=== PATIENT | male | born 1955 | race Caucasian/White ===

== ENCOUNTER 2018-07-28 23:59 | Inpatient (IN) | payer BC ==
[~2018-07-28] VITALS: Ht 175.2 cm; Wt 121.6 kg
--- NOTE | ~2018-07-28 | EKG ---
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
--- NOTE | ~2018-07-28 | EKG ---
[place], [place] ELECTROCARDIOGRAM REPORT NAME: JENNYFER MANCILLA UNIT #: [id number] ROOM: 507 DOCTOR: YESSY DRAFT REPORT BIRTHDATE: [birth year] 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
[~2018-07-28 23:59] MED LIST: ARTHROTEC 50 MG75 MG PO; CYMBALTA60 MG PO; LANOXIN0.25 MG PO; LOPRESSOR25 MG PO; SYNTHROID0.112 MG PO; XARE20MG PO; ZANTAC150 MG PO
[2018-07-29 00:14] VITALS: BP 114/68
[2018-07-29 00:41] LABS: BASO # 0.1 10*3/uL (0.0-0.1); BASO % 1.1 % (0.0-1.0); EOS # 0.3 10*3/uL (0.0-0.4); EOS % 5.5 % (1.0-4.0); HEMOGLOBIN 12.7 g/dl (14.0-18.0); LYMPH # 1.4 10*3/uL (1.3-4.4); LYMPH % 26.5 % (27.0-41.0); MEAN CELL VOLUME 96.7 fl (80.0-94.0); MEAN CORPUSCULAR HGB 32.3 pg (27.0-31.0); MEAN CORPUSCULAR HGB CONC 33.4 g/dl (33.0-37.0); MEAN PLATELET VOLUME 9.6 fl (9.6-12.3); MONO # 0.5 10*3/uL (0.1-1.0); MONO % 8.5 % (3.0-9.0); NEUT # 3.1 10*3/uL (2.3-7.9); PLATELET COUNT AUTOMATED 203 10*3/uL (130-400); RED BLOOD COUNT 3.93 10*6/uL (4.50-5.90); RED CELL DISTRI WIDTH 14.9 % (0-14.5); WHITE BLOOD COUNT 5.3 10*3/uL (4.8-10.8)
[2018-07-29 00:45] VITALS: BP 100/68
--- NOTE | 2018-07-29 00:45 | NUR ---
Time: 44 A 63 year old M admitted to 5E under services of SONJA HAWKINS DO. Pt. arrived via wheel chair from ER. Chief complaint: BILATERAL KNEE AND LEFT ANKLE PAIN, CHRONIC IN NATURE. PATIENT AMBULATORY WITH CANE FOR 5+ YRS. STATES UNABLE TO TAKE STEPS AT WORK THIS PAST EVENING. PATIENT AMBULATED FROM WC TO BED. KARLENE NOLEN
[2018-07-29] MEDS ORDERED: ARIPIPRAZOLE10 MG PO (00:56)
[2018-07-29] MEDS ORDERED: FLECAINIDE ACE100 M1 PO (00:56)
[2018-07-29 00:58] LABS: ALBUMIN 3.3 gm/dl (3.1-4.5); ALKALINE PHOSPHATASE 56 U/L (45-117); BUN 20 mg/dl (7-24); CHLORIDE 104 mmol/L (98-107); CREATININE 1.07 mg/dL (0.70-1.30); POTASSIUM 4.1 mmol/L (3.5-5.1); SGOT/AST 65 IU/L (3-35); SGPT/ALT 47 U/L (12-78); SODIUM 138 mmol/L (136-145); TOTAL PROTEIN 7.3 gm/dL (6.4-8.2); TROPONIN I < 0.015 ng/ml (<0.045)
--- NOTE | 2018-07-29 01:03 | NUR ---
MED REC UP TO DATE VIA MED CLAIMS HX & PATIENT RECALL.
[2018-07-29 01:08] LABS: CPK 1910 U/L (39-308)
--- NOTE | 2018-07-29 01:10 | NUR ---
DR RIVERA SEE TO ASSESS PATIENT AND DISCUSS PLAN OF CARE
--- NOTE | 2018-07-29 02:15 | NUR ---
DR AC ON FLOOR TO ASSESS PATIENT AND DISCUSS PLAN OF CARE
--- NOTE | 2018-07-29 03:40 | NUR ---
ATTEMPTING TO HANG IVF SINCE ORDERED AT 0225. MEDS NOT PROFILED OR AVAIL. [facility] CONTACTED AND REQUESTED IVF TO BE PROFILED
--- NOTE | 2018-07-29 04:30 | NUR ---
SLEEPING. BED ALARM MAINTAINED FOR SAFETY
[2018-07-29 05:39] LABS: BASO # 0.1 10*3/uL (0.0-0.1); EOS # 0.4 10*3/uL (0.0-0.4); EOS % 7.5 % (1.0-4.0); HEMOGLOBIN 13.1 g/dl (14.0-18.0); LYMPH # 1.4 10*3/uL (1.3-4.4); LYMPH % 28.5 % (27.0-41.0); MEAN CELL VOLUME 95.4 fl (80.0-94.0); MEAN CORPUSCULAR HGB CONC 33.6 g/dl (33.0-37.0); MEAN PLATELET VOLUME 9.7 fl (9.6-12.3); MONO # 0.5 10*3/uL (0.1-1.0); MONO % 9.1 % (3.0-9.0); NEUT # 2.7 10*3/uL (2.3-7.9); NEUT % 53.5 % (47.0-73.0); PLATELET COUNT AUTOMATED 205 10*3/uL (130-400); RED BLOOD COUNT 4.09 10*6/uL (4.50-5.90); RED CELL DISTRI WIDTH 14.8 % (0-14.5)
[2018-07-29 05:55] LABS: ALBUMIN 3.2 gm/dl (3.1-4.5); BUN 18 mg/dl (7-24); CHLORIDE 105 mmol/L (98-107); CREATININE 0.96 mg/dL (0.70-1.30); SGOT/AST 60 IU/L (3-35); SGPT/ALT 46 U/L (12-78); SODIUM 138 mmol/L (136-145); TOTAL PROTEIN 6.9 gm/dL (6.4-8.2)
[2018-07-29 05:56] LABS: ALKALINE PHOSPHATASE 54 U/L (45-117)
--- NOTE | 2018-07-29 06:00 | NUR ---
SLEPT SINCE ARRIVING ON FLOOR. IV FLUIDS MAINTAINED. BED ALARM IN PLACE
[2018-07-29 06:25] LABS: CPK 1828 U/L (39-308)
[2018-07-29 08:31] LABS: BILIRUBIN NEGATIVE (NEGATIVE); BLOOD NEGATIVE (NEGATIVE); CLARITY CLEAR (CLEAR); COLOR YELLOW (YELLOW); GLUCOSE NEGATIVE (NEGATIVE); KETONE NEGATIVE (NEGATIVE); LEUKO ESTERASE NEGATIVE (NEGATIVE); NITRITE NEGATIVE (NEGATIVE); PH 5.5 (5.0-9.0); SPECIFIC GRAVITY 1.025 (1.005-1.030)
[2018-07-29 08:55] VITALS: BP 90/63
[2018-07-29 08:57] LABS: WBC 0-2 wbc/hpf (0-5)
--- NOTE | 2018-07-29 09:31 | NUR ---
NOTIFIED REGARDING BP 88/58. PT ASYMPTOMATIC. WILL INCREASE IVF. CALL LIGHT WITHIN REACH.
[2018-07-29 09:35] VITALS: BP 88/58
--- NOTE | 2018-07-29 09:49 | NUR ---
0916 REPORTED OF ABNORMAL BP OF 90/63 TO NIKUNJ LAMA. PATIENTS DENIES soB, DIZZINESS, CHEST PAIN. PATIENT IN SEMI FOWLERS POSITION, AND ALL SAFETYS IN PLACE. PATIENT DELCINED BATH. ROGELIO ANTONIO
--- NOTE | 2018-07-29 10:26 | NUR ---
PATIENT RETURNED TO ROOM FROM SCHEDULED U/S.
--- NOTE | 2018-07-29 10:35 | NUR ---
IN TO SEE PATIENT AT THIS TIME.
[2018-07-29] MEDS ORDERED: Synthroid,Lev150 MCG PO (10:41)
--- NOTE | 2018-07-29 11:06 | NUR ---
Discharge instructions reviewed with patient/family. Patient receptive and verbalizes understanding. Follow-up care arranged. Written instructions given to patient/family. KELBY WILLSON.
--- NOTE | 2018-07-29 11:44 | NUR ---
PHYSICAL THERAPY Nursing screen received. PAtient discharged. Thank you. Raven Massey,PT
== END 2018-07-29 11:07 | disposition home or self-care (01) | DRG 556 ==
LOC: ED 23:59 → EDHOLD 07-29 00:26 → 5E 07-29 00:26
PROVIDERS: Family Medicine; Student in an Organized Health Care Education/Training Program; ADMIT Internal Medicine
DX: R26.2 Difficulty in walking, not elsewhere classified (principal); F12.10 Cannabis abuse, uncomplicated; G89.29 Other chronic pain; M54.9 Dorsalgia, unspecified; I48.91 Unspecified atrial fibrillation; F32.9 Major depressive disorder, single episode, unspecified; E03.9 Hypothyroidism, unspecified; G62.9 Polyneuropathy, unspecified; Z82.49 Family history of ischemic heart disease and other diseases of the circulatory system; K59.00 Constipation, unspecified; E83.51 Hypocalcemia; R74.0 Nonspecific elevation of levels of transaminase and lactic acid dehydrogenase [LDH]; D72.824 Basophilia; K21.9 Gastro-esophageal reflux disease without esophagitis; Z91.14 Patient's other noncompliance with medication regimen; M54.2 Cervicalgia; M25.569 Pain in unspecified knee

== ENCOUNTER → 2019-02-19 | Outpatient (CLI) | payer BC ==
[~2019-02-19] MED LIST changes: +ARIPIPRAZOLE10 MG PO; +FLECAINIDE ACE100 M1 PO; +Synthroid,Lev150 MCG PO
[2019-02-19 14:43] LABS: HEMATOCRIT 40.8 % (42.0-52.0); HEMOGLOBIN 13.8 g/dl (14.0-18.0); MEAN CELL VOLUME 91.3 fl (80.0-94.0); MEAN CORPUSCULAR HGB 30.9 pg (27.0-31.0); MEAN CORPUSCULAR HGB CONC 33.8 g/dl (33.0-37.0); MEAN PLATELET VOLUME 10.2 fl (9.6-12.3); PLATELET COUNT AUTOMATED 240 10*3/uL (130-400); RED BLOOD COUNT 4.47 10*6/uL (4.50-5.90); RED CELL DISTRI WIDTH 13.7 % (0-14.5); WHITE BLOOD COUNT 11.6 10*3/uL (4.8-10.8)
[2019-02-19 15:17] LABS: TOTAL CELLS COUNTED 100 #CELLS
[2019-02-19 15:18] LABS: PLATELET SUFFICIENCY NORMAL (NORMAL)
[2019-02-20 08:11] LABS: HEPATITIS B SURFACE AG Negative (Negative); HEPATITIS C VIRUS ANTIBODY <0.1 s/co (0.0-0.9); RHEUMATOID ARTHRITIS FACTOR <10.0 IU/mL (0.0-13.9)
[2019-02-20 14:07] LABS: ANTI-RNP ANTIBODIES <0.2 AI (0.0-0.9)
[2019-02-20 22:09] LABS: CCP ANTIBODIES IGG/IGA 5 units (0-19)
[2019-02-21 01:07] LABS: LUPUS DRVVT 34.4 sec (0.0-47.0); LUPUS REFLEX INTERPRETATION Comment: (.); PTT-LA 29.9 sec (0.0-51.9)
[2019-02-23 19:05] LABS: HLA-B27 ANTIGEN Negative (.)
== END | disposition home or self-care (01) ==
LOC: LAB 13:26
PROVIDERS: Orthopaedic Surgery
DX: M25.561 Pain in right knee (principal); M25.562 Pain in left knee

== ENCOUNTER → 2020-03-03 | Outpatient (CLI) | payer MEDICARE, OTHER | END | disposition home or self-care (01) | LOC: US 15:43 | PROVIDERS: ATTEND Physician Assistant Medical | DX: K80.20 Calculus of gallbladder without cholecystitis without obstruction (principal) ==

== ENCOUNTER → 2020-07-22 | Outpatient (CLI) | payer MEDICARE ==
[~2020-07-22] MED LIST changes: +CELECOXIB200 M1 PO; +CIPRO500 MG PO; +COLACE100 MG PO; +EUTHYROX200 MCG PO; +FLAGYL500 MG PO; +LEVOTHYROXINE200 MC2 PO; +METOCLOPRAMIDE10 M1 PO; +MURO OPH; +OXYBUTYNIN5 MG PO; +PANTOPRAZOLE SO40 MG PO; +PERCOCET 5-3251 EACH PO; +PHENERGAN25 M3 PO; +SEPTDS PO; +SYNTHROID,LEV175 MCG PO; +Synthroid,Levo25 MCG PO; +ZOFRAN4 MG PO; +[UNRECOGNIZED DRUG - OTHER] OPH
[2020-07-22 14:49] LABS: BASO # 0.1 10*3/uL (0.0-0.1); BASO % 0.9 % (0.0-1.0); EOS # 0.2 10*3/uL (0.0-0.4); HEMATOCRIT 43.6 % (42.0-52.0); LYMPH # 1.4 10*3/uL (1.3-4.4); LYMPH % 25.5 % (27.0-41.0); MEAN CELL VOLUME 90.3 fl (80.0-94.0); MEAN CORPUSCULAR HGB 29.6 pg (27.0-31.0); MEAN CORPUSCULAR HGB CONC 32.8 g/dl (33.0-37.0); MEAN PLATELET VOLUME 10.3 fl (9.6-12.3); MONO # 0.7 10*3/uL (0.1-1.0); MONO % 12.4 % (3.0-9.0); NEUT # 3.1 10*3/uL (2.3-7.9); PLATELET COUNT AUTOMATED 245 10*3/uL (130-400); RED BLOOD COUNT 4.83 10*6/uL (4.50-5.90); RED CELL DISTRI WIDTH 13.2 % (0-14.5); WHITE BLOOD COUNT 5.4 10*3/uL (4.8-10.8)
[2020-07-22 15:18] LABS: BUN 18 mg/dl (7-24); CHLORIDE 107 mmol/L (98-107); CREATININE 0.99 mg/dL (0.70-1.30); POTASSIUM 4.5 mmol/L (3.5-5.1); SODIUM 139 mmol/L (136-145)
== END | disposition home or self-care (01) ==
LOC: LAB 13:42
PROVIDERS: ATTEND Surgery
DX: K82.8 Other specified diseases of gallbladder (principal)

== ENCOUNTER → 2020-07-23 | Outpatient (CLI) | payer MEDICARE | END | disposition home or self-care (01) | LOC: COVID19 10:10 | PROVIDERS: ATTEND Nurse Practitioner | DX: Z01.812 Encounter for preprocedural laboratory examination (principal); Z20.822 Contact with and (suspected) exposure to COVID-19 ==

== ENCOUNTER → 2020-07-28 | Day surgery (SDC) | payer MEDICARE ==
[2020-07-22 13:07] VITALS: BP 102/81
[~2020-07-28] VITALS: Ht 175.2 cm; Wt 90.7 kg
[2020-07-28 10:00] VITALS: BP 112/67
[2020-07-28 12:18] VITALS: BP 168/98
[2020-07-28 12:35] VITALS: BP 139/70
[2020-07-28 12:50] VITALS: BP 115/62
[2020-07-28 13:05] VITALS: BP 124/68
[2020-07-28 13:20] VITALS: BP 124/68
== END | disposition home or self-care (01) ==
LOC: SDC 07-22 12:30
PROVIDERS: ATTEND Surgery
DX: K82.8 Other specified diseases of gallbladder (principal); K80.10 Calculus of gallbladder with chronic cholecystitis without obstruction; I48.91 Unspecified atrial fibrillation; K21.9 Gastro-esophageal reflux disease without esophagitis; F41.9 Anxiety disorder, unspecified; F32.9 Major depressive disorder, single episode, unspecified; E03.9 Hypothyroidism, unspecified; G47.30 Sleep apnea, unspecified; M19.90 Unspecified osteoarthritis, unspecified site; Z95.0 Presence of cardiac pacemaker; Z98.890 Other specified postprocedural states; Z79.899 Other long term (current) drug therapy

== ENCOUNTER 2020-09-16 17:01 | Inpatient (IN) | payer MEDICARE ==
[~2020-09-16] VITALS: Wt 86.2 kg
[~2020-09-16 17:01] MED LIST changes: -CIPRO500 MG PO; -FLAGYL500 MG PO; -LEVOTHYROXINE200 MC2 PO; -METOCLOPRAMIDE10 M1 PO; -MURO OPH; -PHENERGAN25 M3 PO; -SEPTDS PO; -SYNTHROID,LEV175 MCG PO; -[UNRECOGNIZED DRUG - OTHER] OPH
[2020-09-16 17:16] VITALS: BP 138/101
[2020-09-16 18:01] LABS: BASO # 0.1 10*3/uL (0.0-0.1); BASO % 0.4 % (0.0-1.0); HEMATOCRIT 46.1 % (42.0-52.0); LYMPH # 0.9 10*3/uL (1.3-4.4); LYMPH % 7.1 % (27.0-41.0); MEAN CELL VOLUME 87.8 fl (80.0-94.0); MEAN CORPUSCULAR HGB 30.3 pg (27.0-31.0); MEAN CORPUSCULAR HGB CONC 34.5 g/dl (33.0-37.0); MEAN PLATELET VOLUME 9.4 fl (9.6-12.3); MONO # 1.2 10*3/uL (0.1-1.0); MONO % 9.8 % (3.0-9.0); NEUT # 9.9 10*3/uL (2.3-7.9); NEUT % 82.4 % (47.0-73.0); PLATELET COUNT AUTOMATED 274 10*3/uL (130-400); RED BLOOD COUNT 5.25 10*6/uL (4.50-5.90)
[2020-09-16 18:16] LABS: ALBUMIN 3.4 gm/dl (3.1-4.5); ALKALINE PHOSPHATASE 78 U/L (45-117); BUN 18 mg/dl (7-24); CHLORIDE 104 mmol/L (98-107); CREATININE 0.94 mg/dL (0.70-1.30); LIPASE 31 U/L (73-393); POTASSIUM 3.9 mmol/L (3.5-5.1); SGOT/AST 13 IU/L (3-35); SGPT/ALT 19 U/L (12-78); SODIUM 136 mmol/L (136-145); TOTAL PROTEIN 7.6 gm/dL (6.4-8.2)
[2020-09-16 19:17] VITALS: BP 104/70
[2020-09-16 19:40] LABS: BILIRUBIN 1+ (Negative); BLOOD Negative (Negative); CLARITY Clear (Clear); COLOR Dark Yellow (Yellow); GLUCOSE Negative (Negative); KETONE 2+ (Negative); LEUKO ESTERASE Negative (Negative); NITRITE Negative (Negative); PH 5.5 (4.5-8.0); SPECIFIC GRAVITY 1.025 (1.001-1.030)
[2020-09-16 20:03] LABS: BACTERIA TRACE; MUCOUS 2+; RBC 0-2 rbc/hpf (0-2)
[2020-09-16] MEDS ORDERED: LEVOTHYROXINE200 MC2 PO (21:10)
[2020-09-16] MEDS ORDERED: [UNRECOGNIZED DRUG - OTHER] OPH (21:13)
[2020-09-16] MEDS ORDERED: MURO OPH (21:13)
[2020-09-16 21:31] VITALS: BP 144/90
[2020-09-16] MEDS ORDERED: OXYBUTYNIN5 MG PO (21:57)
[2020-09-17] VITALS: BP 98/74
[2020-09-17 06:07] LABS: BASO % 0.4 % (0.0-1.0); EOS % 0.3 % (1.0-4.0); HEMATOCRIT 43.7 % (42.0-52.0); LYMPH # 1.3 10*3/uL (1.3-4.4); LYMPH % 11.6 % (27.0-41.0); MEAN CORPUSCULAR HGB 30.3 pg (27.0-31.0); MEAN PLATELET VOLUME 9.9 fl (9.6-12.3); MONO # 1.4 10*3/uL (0.1-1.0); MONO % 12.4 % (3.0-9.0); NEUT # 8.2 10*3/uL (2.3-7.9); NEUT % 74.8 % (47.0-73.0); PLATELET COUNT AUTOMATED 233 10*3/uL (130-400); RED BLOOD COUNT 4.75 10*6/uL (4.50-5.90); RED CELL DISTRI WIDTH 13.2 % (0-14.5); WHITE BLOOD COUNT 10.9 10*3/uL (4.8-10.8)
[2020-09-17 06:20] LABS: ALBUMIN 2.8 gm/dl (3.1-4.5); ALKALINE PHOSPHATASE 90 U/L (45-117); BUN 14 mg/dl (7-24); CHLORIDE 108 mmol/L (98-107); CREATININE 0.81 mg/dL (0.70-1.30); POTASSIUM 4.4 mmol/L (3.5-5.1); SGOT/AST 105 IU/L (3-35); SGPT/ALT 70 U/L (12-78); SODIUM 140 mmol/L (136-145); TOTAL PROTEIN 6.6 gm/dL (6.4-8.2)
[2020-09-17 06:26] LABS: FREE T4 2.14 ng/dl (0.76-1.46); THYROID STIM HORMONE (HS) 0.013 uIU/ml (0.358-4.75)
[2020-09-17 08:00] VITALS: BP 106/72
[2020-09-17 12:00] VITALS: BP 111/68
[2020-09-17 16:00] VITALS: BP 125/68
[2020-09-17 20:00] VITALS: BP 92/59
[2020-09-18] VITALS: BP 93/62
[2020-09-18 06:02] LABS: BUN 10 mg/dl (7-24); CHLORIDE 114 mmol/L (98-107); SODIUM 144 mmol/L (136-145)
[2020-09-18 06:07] LABS: BASO % 0.5 % (0.0-1.0); EOS # 0.1 10*3/uL (0.0-0.4); EOS % 1.2 % (1.0-4.0); HEMATOCRIT 38.4 % (42.0-52.0); LYMPH # 1.5 10*3/uL (1.3-4.4); LYMPH % 17.8 % (27.0-41.0); MEAN CELL VOLUME 90.6 fl (80.0-94.0); MEAN CORPUSCULAR HGB 30.2 pg (27.0-31.0); MEAN CORPUSCULAR HGB CONC 33.3 g/dl (33.0-37.0); MEAN PLATELET VOLUME 9.7 fl (9.6-12.3); MONO # 0.9 10*3/uL (0.1-1.0); MONO % 10.6 % (3.0-9.0); NEUT # 5.7 10*3/uL (2.3-7.9); NEUT % 69.7 % (47.0-73.0); PLATELET COUNT AUTOMATED 216 10*3/uL (130-400); RED BLOOD COUNT 4.24 10*6/uL (4.50-5.90); RED CELL DISTRI WIDTH 13.2 % (0-14.5); WHITE BLOOD COUNT 8.1 10*3/uL (4.8-10.8)
[2020-09-18 07:33] VITALS: BP 88/50
[2020-09-18 12:00] VITALS: BP 112/82
[2020-09-18 16:00] VITALS: BP 108/76
[2020-09-18 20:00] VITALS: BP 122/69
[2020-09-19] VITALS (7 sets, daily range): BP systolic 94–115; BP diastolic 60–82
[2020-09-19 06:28] LABS: BASO # 0.1 10*3/uL (0.0-0.1); BASO % 0.6 % (0.0-1.0); EOS # 0.3 10*3/uL (0.0-0.4); EOS % 3.5 % (1.0-4.0); HEMATOCRIT 40.7 % (42.0-52.0); LYMPH # 1.5 10*3/uL (1.3-4.4); MEAN CELL VOLUME 91.3 fl (80.0-94.0); MEAN CORPUSCULAR HGB 30.3 pg (27.0-31.0); MEAN CORPUSCULAR HGB CONC 33.2 g/dl (33.0-37.0); MEAN PLATELET VOLUME 9.7 fl (9.6-12.3); MONO # 0.8 10*3/uL (0.1-1.0); MONO % 10.1 % (3.0-9.0); NEUT # 5.5 10*3/uL (2.3-7.9); NEUT % 67.6 % (47.0-73.0); PLATELET COUNT AUTOMATED 246 10*3/uL (130-400); RED BLOOD COUNT 4.46 10*6/uL (4.50-5.90); RED CELL DISTRI WIDTH 13.3 % (0-14.5); WHITE BLOOD COUNT 8.1 10*3/uL (4.8-10.8)
[2020-09-19 06:48] LABS: ALBUMIN 2.8 gm/dl (3.1-4.5); ALKALINE PHOSPHATASE 68 U/L (45-117); BUN 6 mg/dl (7-24); CHLORIDE 114 mmol/L (98-107); CREATININE 0.72 mg/dL (0.70-1.30); POTASSIUM 3.5 mmol/L (3.5-5.1); SGOT/AST 12 IU/L (3-35); SGPT/ALT 27 U/L (12-78); SODIUM 143 mmol/L (136-145); TOTAL PROTEIN 6.4 gm/dL (6.4-8.2)
[2020-09-20] VITALS: BP 113/81
[2020-09-20 06:06] LABS: BUN 3 mg/dl (7-24); CHLORIDE 113 mmol/L (98-107); CREATININE 0.63 mg/dL (0.70-1.30); POTASSIUM 3.4 mmol/L (3.5-5.1); SODIUM 143 mmol/L (136-145)
[2020-09-20 06:18] LABS: BASO % 0.7 % (0.0-1.0); EOS # 0.2 10*3/uL (0.0-0.4); EOS % 4.6 % (1.0-4.0); HEMATOCRIT 33.4 % (42.0-52.0); LYMPH # 0.9 10*3/uL (1.3-4.4); LYMPH % 19.3 % (27.0-41.0); MEAN CORPUSCULAR HGB CONC 32.9 g/dl (33.0-37.0); MEAN PLATELET VOLUME 10.2 fl (9.6-12.3); MONO # 0.5 10*3/uL (0.1-1.0); MONO % 11.2 % (3.0-9.0); NEUT # 2.9 10*3/uL (2.3-7.9); NEUT % 63.8 % (47.0-73.0); PLATELET COUNT AUTOMATED 200 10*3/uL (130-400); RED BLOOD COUNT 3.67 10*6/uL (4.50-5.90); RED CELL DISTRI WIDTH 13.4 % (0-14.5); WHITE BLOOD COUNT 4.6 10*3/uL (4.8-10.8)
[2020-09-20 08:00] VITALS: BP 117/75
[2020-09-20 12:00] VITALS: BP 96/60
[2020-09-20 16:00] VITALS: BP 105/75
[2020-09-20 20:00] VITALS: BP 110/57
[2020-09-21] VITALS (8 sets, daily range): BP systolic 93–116; BP diastolic 54–80
[2020-09-21 07:15] LABS: BASO % 0.7 % (0.0-1.0); EOS # 0.3 10*3/uL (0.0-0.4); EOS % 4.7 % (1.0-4.0); HEMATOCRIT 36.5 % (42.0-52.0); LYMPH % 18.3 % (27.0-41.0); MEAN CELL VOLUME 92.9 fl (80.0-94.0); MEAN CORPUSCULAR HGB 30.3 pg (27.0-31.0); MEAN CORPUSCULAR HGB CONC 32.6 g/dl (33.0-37.0); MEAN PLATELET VOLUME 9.5 fl (9.6-12.3); MONO # 0.7 10*3/uL (0.1-1.0); NEUT # 3.7 10*3/uL (2.3-7.9); NEUT % 64.1 % (47.0-73.0); PLATELET COUNT AUTOMATED 212 10*3/uL (130-400); RED BLOOD COUNT 3.93 10*6/uL (4.50-5.90); RED CELL DISTRI WIDTH 13.5 % (0-14.5); WHITE BLOOD COUNT 5.7 10*3/uL (4.8-10.8)
[2020-09-21 07:42] LABS: BUN 1 mg/dl (7-24); CHLORIDE 112 mmol/L (98-107); CREATININE 0.68 mg/dL (0.70-1.30); POTASSIUM 3.3 mmol/L (3.5-5.1); SODIUM 142 mmol/L (136-145)
[2020-09-22] VITALS: BP 114/76
[2020-09-22 06:48] LABS: BUN 2 mg/dl (7-24); CHLORIDE 110 mmol/L (98-107); CREATININE 0.69 mg/dL (0.70-1.30); POTASSIUM 3.8 mmol/L (3.5-5.1); SODIUM 143 mmol/L (136-145)
[2020-09-22 08:00] VITALS: BP 113/62
[2020-09-22] MEDS ORDERED: PHENERGAN25 M3 PO (11:16)
[2020-09-22] MEDS ORDERED: SYNTHROID,LEV175 MCG PO (11:16)
[2020-09-22] MEDS ORDERED: CIPRO500 MG PO (11:16)
[2020-09-22] MEDS ORDERED: FLAGYL500 MG PO (11:16)
[2020-09-22] MEDS ORDERED: METOCLOPRAMIDE10 M1 PO (11:16)
[2020-09-22] MEDS ORDERED: SEPTDS PO (11:17)
[2020-09-22 12:00] VITALS: BP 135/74
== END 2020-09-22 14:50 | disposition home or self-care (01) | DRG 392 ==
LOC: ED 17:01 → EDHOLD 21:02 → 5E 21:02
PROVIDERS: Hospitalist; Internal Medicine; Physician Assistant; Student in an Organized Health Care Education/Training Program; ADMIT Emergency Medicine; ATTEND Emergency Medicine
PROC: 0DB78ZX Excision of Stomach, Pylorus, Via Natural or Artificial Opening Endoscopic, Diagnostic (ICD-10-PCS; principal; 2020-09-19)
PROC: 0DJD8ZZ Inspection of Lower Intestinal Tract, Via Natural or Artificial Opening Endoscopic (ICD-10-PCS; 2020-09-19)
PROC: 0DBN8ZX Excision of Sigmoid Colon, Via Natural or Artificial Opening Endoscopic, Diagnostic (ICD-10-PCS; 2020-09-21)
DX: K52.9 Noninfective gastroenteritis and colitis, unspecified (principal); E44.0 Moderate protein-calorie malnutrition; K29.70 Gastritis, unspecified, without bleeding; K57.30 Diverticulosis of large intestine without perforation or abscess without bleeding; K21.9 Gastro-esophageal reflux disease without esophagitis; R82.4 Acetonuria; E03.9 Hypothyroidism, unspecified; K59.00 Constipation, unspecified; F32.9 Major depressive disorder, single episode, unspecified; G62.9 Polyneuropathy, unspecified; D72.829 Elevated white blood cell count, unspecified; R73.9 Hyperglycemia, unspecified; I48.0 Paroxysmal atrial fibrillation; M17.0 Bilateral primary osteoarthritis of knee; N39.41 Urge incontinence; Z82.49 Family history of ischemic heart disease and other diseases of the circulatory system; Z90.49 Acquired absence of other specified parts of digestive tract; Z68.28 Body mass index [BMI] 28.0-28.9, adult; Z79.899 Other long term (current) drug therapy

== ENCOUNTER → 2020-10-27 | Outpatient (CLI) | payer MEDICARE ==
[~2020-10-27] MED LIST changes: +CIPRO500 MG PO; +FLAGYL500 MG PO; +LEVOTHYROXINE200 MC2 PO; +METOCLOPRAMIDE10 M1 PO; +MURO OPH; +PHENERGAN25 M3 PO; +SEPTDS PO; +SYNTHROID,LEV175 MCG PO; +[UNRECOGNIZED DRUG - OTHER] OPH
== END | disposition home or self-care (01) ==
LOC: CT 11:00
PROVIDERS: ATTEND Internal Medicine Gastroenterology
DX: K57.30 Diverticulosis of large intestine without perforation or abscess without bleeding (principal); K56.41 Fecal impaction; N26.1 Atrophy of kidney (terminal); M51.36 Other intervertebral disc degeneration, lumbar region

== ENCOUNTER 2022-02-28 16:44 | Emergency (ER) | payer MEDICARE ==
[~2022-02-28] VITALS: Ht 175.2 cm; Wt 95.3 kg
[2022-02-28 17:33] LABS: BASO % 0.6 % (0.0-1.0); EOS # 0.1 10*3/uL (0.0-0.4); EOS % 1.3 % (1.0-4.0); HEMATOCRIT 41.8 % (42.0-52.0); LYMPH # 0.7 10*3/uL (1.3-4.4); LYMPH % 13.5 % (27.0-41.0); MEAN CELL VOLUME 91.7 fl (80.0-94.0); MEAN CORPUSCULAR HGB 30.9 pg (27.0-31.0); MEAN CORPUSCULAR HGB CONC 33.7 g/dl (33.0-37.0); MEAN PLATELET VOLUME 9.2 fl (9.6-12.3); MONO # 0.4 10*3/uL (0.1-1.0); MONO % 7.6 % (3.0-9.0); NEUT # 4.2 10*3/uL (2.3-7.9); NEUT % 76.6 % (47.0-73.0); PLATELET COUNT AUTOMATED 204 10*3/uL (130-400); RED BLOOD COUNT 4.56 10*6/uL (4.50-5.90); WHITE BLOOD COUNT 5.4 10*3/uL (4.8-10.8)
[2022-02-28 17:57] LABS: BUN 18 mg/dl (7-24); CHLORIDE 107 mmol/L (98-107); CREATININE 0.95 mg/dL (0.70-1.30); POTASSIUM 3.9 mmol/L (3.5-5.1); SODIUM 138 mmol/L (136-145)
== END 2022-02-28 18:54 | disposition short-term general hospital (02) ==
LOC: ED 16:44
PROVIDERS: Internal Medicine
DX: R42 Dizziness and giddiness (principal); F12.10 Cannabis abuse, uncomplicated; Z90.49 Acquired absence of other specified parts of digestive tract; Z98.890 Other specified postprocedural states

== ENCOUNTER → 2023-04-23 | Outpatient (CLI) | payer MEDICARE ==
[2023-04-23 15:18] LABS: BUN 11 mg/dl (9-23)
== END ==
LOC: LAB 14:41
PROVIDERS: ATTEND Physician Assistant
DX: R63.4 Abnormal weight loss (principal)

== ENCOUNTER → 2023-04-29 | Outpatient (CLI) | payer MEDICARE | END | disposition home or self-care (01) | LOC: CT 00:40 | PROVIDERS: ATTEND Physician Assistant | DX: K57.30 Diverticulosis of large intestine without perforation or abscess without bleeding (principal); M43.26 Fusion of spine, lumbar region; Z98.890 Other specified postprocedural states ==